=== PATIENT | female | born 1970 | race Caucasian/White ===

== ENCOUNTER 2022-11-10 16:30 | Emergency (ER) | payer OTHER, SELFPAY ==
[2022-11-10] VITALS (26 sets, daily range): BP systolic 102–143; BP diastolic 62–86; PULSE 81–101; RESP 15–33; TEMP 36.4; O2SAT 95–100
--- NOTE | ~2022-11-10 | XR_ITS ---
EXAMINATION: XR chest 1V portable Exam Date/Time: 11/10/2022 17:00 CDT HISTORY: seizure Comparison: None. RESULT: Lines, tubes, and devices: None. Lungs and pleura: Clear. Cardiomediastinal silhouette: Unremarkable. Other: No acute osseous or upper abdominal finding. IMPRESSION: No acute cardiopulmonary process. Reviewed, dictated and finalized at location K.
--- NOTE | 2022-11-10 16:45 | ECG_ITS ---
Measurements Intervals [place] Rate: 91 P: 72 DE: 172 QRS: 91 QRSD: 110 T: 38 QT: 372 QTc: 458 Interpretive Statements SINUS RHYTHM BORDERLINE RIGHT AXIS DEVIATION [QRS AXIS > 90] NO PREVIOUS ECG AVAILABLE FOR COMPARISON Electronically Signed On 11-11-2022 19:40:50 CDT by Grace Moseley M.D.
--- NOTE | 2022-11-10 16:50 | ED.SEIZURE ---
HPI - Seizure General Chief Complaint: Seizure Stated Complaint: vomiting;seizure Time Seen by Provider: 11/10/22 16:44 Source: patient and family Mode of arrival: ambulatory Limitations: altered mental status and clinical condition History of Present Illness HPI Narrative: patient is a 52-year-old female who presents to the emergency room for near syncope and nausea vomiting. She began having a seizure as soon as the nurses came into the room to see her at this time. Patient has a history of 2-3 days of no alcohol and prior alcoholism. No prior issues with DTs however. is present. MD complaint: seizure Onset (ago): minute(s) (5) Description of Episode: loss of consciousness, tonic-clonic movement and post-event confusion Duration of episode: 1 -: minutes(s) Witnessed: Yes - by Other (nursing and doctor staff) Trauma: No Seizure History: No Place: ER Possible Precipitating Event: alcohol withdrawal Associated symptoms: syncope (near syncope feeling) Treatments prior to arrival: none Related Data Allergies Allergy/AdvReac Type Severity Reaction Status Date / Time Sulfa (Sulfonamide Allergy Mild Diarrhea Verified 11/10/22 16:49 Antibiotics) Review of Systems Review of Systems: All systems reviewed & are unremarkable except as noted in HPI and below Constitutional: Constitutional: Reports no additional constitutional complaints Eyes: Eyes: Reports no additional eye complaints ENT: Reports system reviewed and no additional complaints, except as documented Cardiovascular: Cardiovascular: Reports no additional cardiovascular complaints Respiratory: Respiratory: Reports no additional respiratory complaints Gastrointestinal: Gastrointestinal: Reports no additional gastrointestinal complaints Genitourinary: Genitourinary: Reports no additional female genitourinary complaints Musculoskeletal: Musculoskeletal: Reports no additional musculoskeletal complaints Integumentary/Breasts: Skin/Breast: Reports system reviewed and no additional complaints, except as docu Neurologic: Reports system reviewed and no additional complaints, except as documented Psychiatric: Psychiatric: Reports no additional psychiatric complaints Endocrine: Endocrine: Reports no additional endocrine complaints Hematologic/Lymphatic: Hematologic/Lymphatic: Reports no additional hematologic/lymphatic complaints Allergic/Immunologic: Allergic/Immunologic: Reports no additional allergic/immunologic complaints PMFSH Social History Social History Smoking status: Never smoker Exam Const: General: ill appearing Nutritional Appearance: thin Orientation/consciousness: confusion Limitations: altered mental status HENMT: Head: normal to inspection Eyes: Conjunctivae: conjunctivae normal Neck: Neck: normal visual inspection Chest: Chest palpation & inspection: normal inspection of the chest Resp: Effort & Inspection: normal respiratory effort Auscultation: clear to auscultation bilaterally Cardio: Rate: regular rate Rhythm: regular rhythm Heart sounds: no murmurs GI: Inspection: non-distended GI Palp: Yes Soft to palpation and No Tenderness to palpation present (GI) Auscultation: normal bowel sounds : General: Yes bladder normal to palpation Back/Spine/Pelvis: Back: no CVA tenderness Skin: General skin exam: normal color Rashes: no rashes Wounds: no wounds Neuro: Cranial nerves: Yes Nystagmus present Speech: normal speech (initially then had a seizure) Extrem: General: normal to inspection Psych: Appearance: grossly normal Mental Status: mental status grossly normal Course Vital Signs Vital signs: Vital Signs Temperature 36.4 C 11/10/22 16:30 Pulse Rate 97 11/10/22 16:30 Respiratory Rate 18 11/10/22 16:30 Blood Pressure 141/84 H 11/10/22 16:30 Pulse Oximetry 100 11/10/22 16:30 Oxygen Delivery Room Air 11/10/22 16:30 Te
[2022-11-10] MEDS: LORazepam INJ (*CRX) 2 MG/ML VIAL 6 MG IV PUSH (16:55)
[2022-11-10 16:59] LABS: Appearance Urine Clear (Clear); Bilirubin Urine Negative (Negative); Blood Urine Negative (Negative); Glucose Urine UA Trace (Negative); Ketones Urine 2+ (Negative); Leukocyte Esterase Ur Negative (Negative); Nitrate Urine Negative (Negative); Protein Urine Negative (Negative); Urobilinogen Urine 0.2 mg/dL (0.2-1.0)
[2022-11-10] MEDS: ONDANSETRON INJ 4 MG/2 ML VIAL 8 MG IV PUSH (16:59)
[2022-11-10] MEDS: SODIUM CHLORIDE 0.9% IV 1,000 ML 999 ML IV CONT (17:01)
[2022-11-10 17:02] LABS: Glucose Point of Care 130 mg/dl (65-105)
[2022-11-10 17:09] LABS: Basophils Absolute Auto 0.05 K/mm3 (0.00-0.10); Basophils Percent Auto 0.5 % (0.0-1.0); Eosinophils Absolute Auto 0.05 K/mm3 (0.02-0.50); Eosinophils Percent Auto 0.5 % (1.0-6.0); Hematocrit 33.4 % (35.0-49.0); Hemoglobin 12.4 g/dL (12.0-15.0); Immature Granulocyte Absolute 0.09 K/mm3 (0.00-0.00); Immature Granulocyte Percent A 0.9 % (0.0-0.0); Lymphocytes Absolute Auto 0.76 K/mm3 (1.10-4.50); Lymphocytes Percent Auto 7.4 % (18.0-42.0); Mean Corpuscular HGB Conc 37.1 g/dL (32.0-36.0); Mean Corpuscular Hemoglobin 32.9 pg (27.0-31.0); Mean Corpuscular Volume 88.6 fL (78.0-102.0); Mean Platelet Volume 8.8 fl (9.2-11.8); Monocytes Absolute Auto 1.02 K/mm3 (0.10-0.90); Monocytes Percent Auto 9.9 % (2.0-11.0); Neutrophils Absolute Auto 8.3 K/mm3 (1.7-7.2); Neutrophils Percent Auto 80.8 % (50.0-70.0); Platelet Count Result 179 K/mm3 (150-420); Red Blood Count 3.77 M/mm3 (4.20-5.40); Red Cell Distribution Width 11.7 % (11.6-14.4); White Blood Count 10.3 K/mm3 (4.8-10.8)
[2022-11-10 17:10] LABS: Add Urine Microscopic? YES; Bacteria Urine Trace /hpf; Color Urine Dark Orange (Yellow); RBC Urine None seen /hpf (0-2); Squamous Epithelial Cell Urine Few /hpf (Few); WBC Urine None seen /hpf (0-3)
[2022-11-10 17:14] LABS: Amphetamine Screen Urine Negative (Negative); Barbiturate Screen Urine Negative (Negative); Benzodiazepines Screen Urine Negative (Negative); Cannabinoid Screen Urine Negative (Negative); Cocaine Screen Urine Negative (Negative); Methadone Screen Urine Negative (Negative); Opiate Screen Urine Negative (Negative); Phencyclidine Screen Urine Negative (Negative)
[2022-11-10 17:23] LABS: Alanine Aminotransferase 56 U/L (14-59); Albumin Level 3.3 g/dL (3.4-5.0); Alkaline Phosphatase 70 U/L (46-116); Ammonia 11 umol/L (11-32); Anion Gap 10 mmol/L (8-16); Aspartate Amino Transferase 44 U/L (15-37); Bilirubin,Total 1.6 mg/dL (0.00-1.00); Blood Urea Nitrogen 9 mg/dL (7-18); Calcium 8.7 mg/dL (8.5-10.1); Carbon Dioxide 28 mmol/L (21-32); Chloride 68 mmol/L (98-108); Estimated CRCL calculation 65 ml/min; Estimated Glomerular Filt Rate > 60; Glucose 117 mg/dL (70-99); Osmolality Calculated 221 mOsm/kg (285-295); Total Protein 6.5 g/dL (6.4-8.2)
[2022-11-10 17:26] LABS: Ethanol < 3 mg/dL (0-6); Potassium 2.5 mmol/L (3.5-5.1); Sodium 106 mmol/L (136-145)
--- NOTE | 2022-11-10 17:43 | PC.NURSE ---
PT HAD A WITNESSED SEIZURE LASTING APPROX 7 MINUTES IN EXAM ROOM. DENIES ANY PREVIOUS SEIZURE HX. REPORTS PT IS A 30+ YR DAILY DRINKING OF 5-6 DRINKS PER DAY. 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 PT HAD N-V X 3 DAYS THAT RESOLVED, BUT THEN WAS REPORTING DIZZINESS, AND SHAKINESS THAT WOULD NOT RESOLVE. PT DENIED ANY PAIN, DIARRHEA. REPORTS SHE WAS EXTREMELY THIRSTY, DRINKING GATORADE AND WATER. PT WAS MEDICATED AND SEIZURE ACTIVITY DID STOP, PT IS SEDATED AT THIS TIME, MAINTAINS HER OWN AIRWAY WITHOUT DIFFICULTY. VSS PER MONITOR. ERP IS AWARE OF NA+ LEVEL THAT WAS REPORTED CRITICAL.
[2022-11-10 17:48] LABS: Magnesium 1.6 mg/dL (1.8-2.4)
[2022-11-10 17:54] LABS: INR 0.9; Partial Thromboplastin Time 28.2 SEC (23.90-30.70)
[2022-11-10 17:59] LABS: Troponin I < 4.0 ng/L (0.00-60.4)
[2022-11-10] MEDS: THIAMINE HCL 200 MG/2 ML VIAL 100 MG IV PUSH (18:01)
[2022-11-10] MEDS: MAGNESIUM SULF 2 GM/WATER 50ML 2 GM/50 ML BAG IVPB (18:11)
[2022-11-10] MEDS: KCL 20 MEQ/SW 100 ML 100 ML 50 MEQ IVPB (18:13)
--- NOTE | 2022-11-10 18:22 | PC.NURSE ---
NO CHANGE IN PT STATUS, PT MAINTAINS HER OWN AIRWAY WITHOUT DIFFICULTY. VSS PER MONITOR. PT HAS IV MEDICATIONS INFUSING WITHOUT DIFFICULTY. NAD NOTED. WILL CONTINUE TO MONITOR. PT IS AWAITING RETURN CALL FROM [facility] WITHOUT DIFFICULTY.
--- NOTE | 2022-11-10 18:32 | PC.NURSE ---
HAS RETURNED, IT AT BEDSIDE. NO CHANGE IN PT STATUS. HAS BEEN UPDATED.
--- NOTE | 2022-11-10 19:32 | PC.NURSE ---
PT HAD 1700 ML CLEAR BRIGHT YELLOW URINE OUTPUT.
== END 2022-11-10 19:33 | disposition short-term general hospital (02) ==
PROVIDERS: Emergency Provider Emergency Medicine; PCP Nurse Practitioner Family
DX: E87.1 Hypo-osmolality and hyponatremia (principal); R56.9 Unspecified convulsions; F10.239 Alcohol dependence with withdrawal, unspecified; Y90.0 Blood alcohol level of less than 20 mg/100 ml
CPT/HCPCS: 36415; 71045; 80053; 80307; 81001; 82140; 82948; 83735; 84484; 85025; 85610; 85730; 93005; 96361; 96365; 96368; 96375; 99284; 99285; J2060; J2405; J3411; J3475; J3480; J7030

== ENCOUNTER 2022-11-24 10:57 | Outpatient (CLI) | payer OTHER, SELFPAY ==
[2022-11-24 11:19] LABS: Basophils Absolute Auto 0.09 K/mm3 (0.00-0.10); Basophils Percent Auto 1.1 % (0.0-1.0); Eosinophils Absolute Auto 0.14 K/mm3 (0.02-0.50); Eosinophils Percent Auto 1.8 % (1.0-6.0); Hematocrit 34.1 % (35.0-49.0); Hemoglobin 11.8 g/dL (12.0-15.0); Immature Granulocyte Absolute 0.03 K/mm3 (0.00-0.00); Immature Granulocyte Percent A 0.4 % (0.0-0.0); Lymphocytes Absolute Auto 1.82 K/mm3 (1.10-4.50); Mean Corpuscular HGB Conc 34.6 g/dL (32.0-36.0); Mean Corpuscular Hemoglobin 32.9 pg (27.0-31.0); Mean Platelet Volume 8.1 fl (9.2-11.8); Monocytes Percent Auto 7.6 % (2.0-11.0); Neutrophils Absolute Auto 5.2 K/mm3 (1.7-7.2); Neutrophils Percent Auto 66.1 % (50.0-70.0); Platelet Count Result 490 K/mm3 (150-420); Red Blood Count 3.59 M/mm3 (4.20-5.40); Red Cell Distribution Width 12.1 % (11.6-14.4); White Blood Count 7.9 K/mm3 (4.8-10.8)
[2022-11-24 11:51] LABS: Alanine Aminotransferase 26 U/L (14-59); Albumin Level 3.7 g/dL (3.4-5.0); Alkaline Phosphatase 65 U/L (46-116); Anion Gap 11 mmol/L (8-16); Aspartate Amino Transferase 24 U/L (15-37); Bilirubin,Total 0.3 mg/dL (0.00-1.00); Blood Urea Nitrogen 7 mg/dL (7-18); Calcium 9.8 mg/dL (8.5-10.1); Carbon Dioxide 26 mmol/L (21-32); Chloride 98 mmol/L (98-108); Estimated Glomerular Filt Rate > 60; Glucose 112 mg/dL (70-99); Osmolality Calculated 279 mOsm/kg (285-295); Sodium 135 mmol/L (136-145); Total Protein 6.8 g/dL (6.4-8.2)
== END 2022-11-24 10:58 | disposition home or self-care (01) ==
LOC: CHSLAB 10:59
PROVIDERS: PCP Nurse Practitioner Family; Visit Provider Nurse Practitioner Family
DX: E87.1 Hypo-osmolality and hyponatremia (principal); E83.42 Hypomagnesemia; I10 Essential (primary) hypertension
CPT/HCPCS: 36415; 80053; 83735; 85025